=== PATIENT | female | born 1950 | race Caucasian/White ===

== ENCOUNTER 2019-01-25 10:54 | Inpatient (IN) | payer OTHER ==
[2019-01-11 13:19] LABS: HEMATOCRIT 42.4 % (37.0-47.0); HEMOGLOBIN 14.5 gm/dL (12.0-15.0); MCH 31.3 pg (26.0-34.0); MCHC 34.3 g/dL (28.0-37.0); MCV 91.3 fL (80.0-100.0); RBC 4.64 mil/uL (4.20-5.00); RDW 12.7 % (10.5-14.5); URINE BILIRUBIN NEGATIVE (Negative); URINE BLOOD 2+ (Negative); URINE CLARITY CLEAR; URINE COLOR YELLOW; URINE GLUCOSE-RANDOM* NEGATIVE (Negative); URINE KETONES NEGATIVE (Negative); URINE LEUKOCYTES-REFLEX 2+ (Negative); URINE NITRITE-REFLEX NEGATIVE (Negative); URINE PROTEIN (DIPSTICK) NEGATIVE (Negative); URINE UROBILINOGEN 0.2 E.U./dl (0.2-1.0); WBC 6.9 thou/uL (4.0-11.0)
[2019-01-11 13:29] LABS: ALBUMIN 3.5 g/dL (3.4-5.0); CREATININE 0.8 mg/dL (0.6-1.0); POTASSIUM 4.2 mmol/L (3.5-5.1)
[2019-01-11 13:30] LABS: BACTERIA-REFLEX None Seen /HPF (None Seen); CASTS None Seen /LPF (None Seen); CRYSTALS None Seen /LPF (None Seen); SQUAMOUS >10 Many /LPF (0-3); URINE RBC 3-10 Few /HPF (0-2); URINE WBC-REFLEX >25 Many /HPF (0-5)
--- NOTE | 2019-01-11 19:07 | EKG ---
[address] [place] [address] ELECTROCARDIOGRAM REPORT Name: JUAN WOOTEN Room #: PRE IN .#: [id number] ������������������ Admission: ������������������ Attend Phys: Daren Pagan MD Discharge: ������������������ Date of : 46 Report #: [id number] ����������������������������������������������������������������� [id number] THIS REPORT FOR: //name// [facility] Test Date: 2019-01-11 Test Time: 13:18:48 Pat Name: JUAN WOOTEN Department: Room: Gender: F Courtesy Van Driver: jaison : 1950 Requested By: Daren Pagan Order Number: [id number] MD: Jac Allen Measurements Intervals [place] Rate: 81 P: 50 NC: 152 QRS: 1 QRSD: 100 T: 12 QT: 381 QTc: 443 Interpretive Statements Sinus rhythm Baseline wander Nonspecific ST-T wave changes No previous ECG available for comparison Electronically Signed On 01-11-2019 19:07:24 CODER by Jac Allen [email or web address] ��������������������������������������������� <ELECTRONICALLY SIGNED> ���������������������������������������� By: Jac Allen MD ��������������������������������������������� 01/11/19 1907 1318 1318 Jac Allen MD /EPI
[~2019-01-25] VITALS: Ht 170.2 cm; Wt 104.3 kg
[~2019-01-25 10:54] MED LIST: ACETAMINOPHEN500 M1 PO
[2019-01-31 08:39] VITALS: BP 141/96
[2019-01-31 16:24] VITALS: BP 113/69
--- NOTE | 2019-01-31 18:11 | NUR ---
Pt arrived to floor from recovery room in stable condition at 1240.Post op assessment and care plan completed.Pt rated rt knee pain 6/10.Pain med given with releif.Pt tolerated clear liq and diet was advance at dinner to regular. Pt in in eating dinner at present.Will continue to monitor.
[2019-01-31 20:00] VITALS: BP 113/66
--- NOTE | 2019-02-01 00:33 | NUR ---
Assumed care of pt at 1900. Pt alert and oriented x4. Dressing on right knee incision clean and intact. Able to ambulate with a walker. Pain controlled with prn pain meds. Ice pack provided. KARLA haynes and SDCs bilaterally. Call light within reach. Will continue to monitor.
[2019-02-01 03:30] VITALS: BP 110/55
[2019-02-01 04:30] LABS: HEMATOCRIT 36.2 % (37.0-47.0); HEMOGLOBIN 12.2 gm/dL (12.0-15.0); MCH 31.3 pg (26.0-34.0); MCHC 33.7 g/dL (28.0-37.0); MCV 92.8 fL (80.0-100.0); RBC 3.89 mil/uL (4.20-5.00); RDW 12.7 % (10.5-14.5); WBC 13.3 thou/uL (4.0-11.0)
[2019-02-01 08:57] VITALS: BP 117/52
--- NOTE | 2019-02-01 11:24 | O ---
[facility] [place] [address] OPERATIVE REPORT Name: JUAN WOOTEN Room #: 420-P [facility] IN M.R.#: [id number] Admission: 01/31/19 ������������������ Attend Phys: Daren Pagan MD Discharge: ������������������ Date of : 46 Report #: [id number] THIS REPORT FOR: //name// CC: LALA ALVAREZ Physician staff Daren Pagan DATE OF SERVICE: 01/31/2019 PREOPERATIVE DIAGNOSES: Varus valgus instability, right total knee arthroplasty. POSTOPERATIVE DIAGNOSES: Varus valgus instability, right total knee arthroplasty. PROCEDURE: Revision right total knee arthroplasty of the polyethylene liner only. SURGEON: Daren Pagan MD SUPERVISOR PLEATING: Kesha Parker PA-C INDICATION FOR SUPERVISOR PLEATING: Throughout the case, extensive retraction and manipulation of the knee was required. This was afforded to me by my campus administrative assistant. ANESTHESIA: General with an adductor canal block. IMPLANTS: Bonita NexGen size 23 mm poly ____ femur and 3-4 tibia. TOURNIQUET TIME: 36 minutes. ESTIMATED BLOOD LOSS: 25 mL. COMPLICATIONS: None. SPECIMENS: Cultures were sent x 2. CONDITION UPON LEAVING THE OPERATING ROOM: Stable. INDICATIONS FOR PROCEDURE: The patient is a 68-year-old female who has previously had a right total knee arthroplasty using the Bonita NexGen system. She initially did well with this; however, over the past year or so, she has had progressive loosening and instability of her knee. Physical exam showed her to have a 2+ varus and valgus laxity. Bone scan was performed, which was negative for loosening of the components. Workup for infection was negative. After discussion with her, she elected for revision right total knee arthroplasty with [facility] [address] [place] [address] OPERATIVE REPORT Name: JUAN WOOTEN Room #: 420-P [facility] IN M.R.#: [id number] Admission: 01/31/19 ������������������ Attend Phys: Daren Pagan MD Discharge: ������������������ Date of : 46 Report #: [id number] possible polyethylene exchange for a thicker poly versus complete revision. DESCRIPTION OF PROCEDURE: Risks, benefits, alternatives, complications were discussed in detail with the patient including but not limited to risk of anesthesia, risk of damage to nerves, arteries, blood vessels, risk for infection, bleeding, risk for continued knee pain, and need for reoperation. Informed consent was obtained from the patient. The right knee was appropriately marked in the preoperative holding area. Adductor canal block was placed by Anesthesia. IV Ancef was given for preoperative antibiotics. She was brought to the operating room and placed in the supine position on the operating room table. General anesthesia was induced without complication. Tourniquet was placed on the right thigh. Right lower extremity was prepped and draped in normal sterile fashion. Timeout was performed, properly identifying the patient and procedure as well as the instrumentation and implants. All in the operating room were in agreement. Right lower extremity was exsanguinated, tourniquet was inflated. Tourniquet time was 36 minutes. The previous scar was used, and this was opened with a 10 blade through the skin. Dissection was taken down sharply to the fascia and deep flaps were developed medially and laterally. A fresh 10 blade was used to make a medial parapatellar arthrotomy, and there was a normal-appearing joint fluid. Cultures of this were taken x 2. Exam of the knee was performed, and it did demonstrate grade 2 varus and valgus laxity of the total knee arthroplasty. The polyethylene liner was removed. This was a 17 mm liner from her primary index procedure. Examination of the knee was performed about the liner and the components were stable. There were no signs of osteolysis. After this, the knee was trialed with a size 20 and then a size 23 liner found to have the best fit with a size 23 with 1 mm of laxity both medially and laterally with the 23 mm liner. It was decided to proceed with placement of a new 23 mm liner. The knee was thoroughly irrigated with normal saline and new 23 mm NexGen for a 3-4 tibial liner was then placed. The setscrew was tightened and torqued. Exam of the knee again was performed and found to have good stability to varus and valgus stress. A periarticular injection consisting of morphine, ropivacaine, epinephrine and Toradol was placed around the knee joint capsule. A gram of vancomycin was placed deep in the joint. The fascia was closed with 0 Vicryl, skin was closed with 2-0 Vicryl, 3-0 Monocryl. Dermabond and a KUMAR dressing were applied. The patient tolerated this procedure well and went to recovery room under care of Anesthesia postoperatively. ��������������������������������������������� <ELECTRONICALLY SIGNED> ���������������������������������������� By: Daren Pagan MD ��������������������������������������������� 02/01/19 1124 1128 1302 Daren Pagan MD /nt
[2019-02-01] MEDS ORDERED: TRI-BUFFERED A325 M1 PO (12:41)
[2019-02-01] MEDS ORDERED: NEURONTIN 300300 M1 PO (12:41)
--- NOTE | 2019-02-01 13:02 | NUR ---
PT ADMITTED RELATED TO RIGHT KNEE REVISION, TOTAL KNEE REPLACEMENT. CM REVIEWED CHART AND SPOKE WITH CARE TEAM. CM MET WITH PT AT BEDSIDE THIS DAY. PT IS A&O X4. CM ROLE INTRODUCED. PT INDICATED SHE LIVES IN A HOUSE WITH HER SPOUSE WITH 3 STEPS TO ENTER THROUGH THE GARAGE THEN ALL NEEDS ON 1 LEVEL. PT INDICATED SHE HAS A CANE AND A FWW FOR USE AT HOME. PT INDICATED SHE HAD HOME HEALTH IN THE PAST THROUGH HOSPITAL IN [place]. PT INDICATED SHE PLANS TO RETURN HOME THIS DAY. CM CALLED [facility] AND THEY PROVIDE SERVICE IN HER AREA. PT IS TO HAVE [facility] PT. NO OTHER CM INTERVENTION INDICATED AT THIS TIME. CASE CLOSED.
[2019-02-01 13:12] VITALS: BP 117/52
[2019-02-01 13:51] VITALS: BP 117/52
--- NOTE | 2019-02-01 14:24 | NUR ---
PT READY TO DISCHARGE IV ACSESS DCD, ALL BELONGINGS PACKED AND TO BE SENT WITH PATIENT. WAITING ON DR GRACE TO FINISH DC IN COMPUTER. PT GIVEN PRN PAIN PILL AT THIS TIME.
--- NOTE | 2019-02-01 16:33 | NUR ---
PT DISCHARGED AT THIS TIME. TAKEN WITH BELONGINGS VIA W/C TO MAIN ENTRANCE. DISCHARGE PAPERS GONE OVER WITH PATIENT SIGNED AND COPY IN CHART. RX'S GIVEN. PT W/O PAIN AT DISCHARGE.
[2019-02-01 16:35] VITALS: BP 117/52
--- NOTE | 2019-02-01 16:39 | NUR ---
FAXED DC ORDERS/SUMMARY TO [facility] SPOKE WITH EUGENE IN ADM. SHE RECEIVED REFERRAL AND WILL CALL PT. WITH TIME OF VISITS.
== END 2019-02-01 17:38 | disposition home health service (06) | DRG 468 ==
LOC: PRE 10:54 → 4E 01-31 05:22 → TBA 01-31 05:22 → PRE 01-31 05:35 → 4E 01-31 12:56 → ENTRNSPT 01-31 13:41 → EDTRNSPTSTS 01-31 13:44 → PRE 01-31 14:35 → EDTRNSPTTYP 02-01 15:16 → EDTRNSPT 02-01 15:16 → 4E 02-01 17:38
PROVIDERS: ADMIT Orthopaedic Surgery
DX: M17.11 Unilateral primary osteoarthritis, right knee (principal); M21.069 Valgus deformity, not elsewhere classified, unspecified knee; M21.061 Valgus deformity, not elsewhere classified, right knee; Z79.82 Long term (current) use of aspirin; Z79.899 Other long term (current) drug therapy
CPT/HCPCS: 10783; 50010; 50101; 50415; 50954; 53078; 54118; 55430; 56527; 56528; 57095; 57103; 57109; 57110; 57113; 57116; 57180; 62110; 62900; 64042; 70005